=== PATIENT | female | born 1980 | race Caucasian/White ===

== ENCOUNTER 2019-12-12 07:34 | Outpatient (CLI) | payer OTHER ==
[2019-12-12 16:52] LABS: Hemoglobin 13.1 g/dL (12.0-16.0); Mean Corpuscular Hemoglobin 32.6 pg (27.0-31.0); Mean Corpuscular Volume 98.5 fL (78.0-98.0); Mean Platelet Volume 7.4 fL (7.4-10.4); Platelet Count 303 thou/uL (130-400); RBC Distribution Width 12.6 % (11.5-14.5); Red Blood Cell (RBC) Count 4.02 mill/uL (4.20-5.40); White Blood Cell (WBC) Count 7.9 thou/uL (4.8-10.8)
[2019-12-12 17:08] LABS: Anion Gap 9 mmol/L (10-20); BUN (Urea Nitrogen) 5 mg/dL (7.0-18.7); Calc. Creatinine Clearance 0 mL/min (70-130); Carbon Dioxide 28 mmol/L (22-29); Chloride 103 mmol/L (98-107); Estimated GFR-MDRD 85; Glucose 80 mg/dL (70-105); Potassium 3.7 mmol/L (3.5-5.1); Sodium 136 mmol/L (136-145)
[2019-12-13 18:17] LABS: SARS-CoV-2 MS2 Positive; SARS-CoV-2 N Gene Negative; SARS-CoV-2 S Gene Negative; SARS-CoV-2 orf1ab Negative
== END 2019-12-12 07:35 | disposition home or self-care (01) ==
LOC: LABBT 07:34
PROVIDERS: ATTEND Neurological Surgery
DX: Z01.818 Encounter for other preprocedural examination (principal); Z11.59 Encounter for screening for other viral diseases; M54.16 Radiculopathy, lumbar region
CPT/HCPCS: 80048; 85027; 87635; 93005; 93010; U0003

== ENCOUNTER 2019-12-17 07:21 | Day surgery (SDC) | payer OTHER ==
[2019-12-12 16:16] VITALS: BMI 31.6
[2019-12-17] MEDS ORDERED: Midazolam HCl 2 mg/2 ml Vial ONE (09:57)
[2019-12-17] MEDS ORDERED: Fentanyl 100 MCG/2 ML VIAL ONE ×3 (09:57→11:41)
[2019-12-17] MEDS ORDERED: Ketorolac Tromethamine 30 MG/ML VIAL ONE ×2 (11:19→12:57)
[2019-12-17] MEDS ORDERED: Morphine 4 MG/ML VIAL ONE (11:23)
[2019-12-17] MEDS ORDERED: Morphine 2 MG/ML SYRINGE ONE (11:40)
--- NOTE | 2019-12-17 12:12 | OP ---
DATE OF PROCEDURE: 12/17/2019 CLINICAL LAB SCIENTIST: Lilian Kovacs PA-C PROCEDURE PERFORMED: Left L5-S1 microdiskectomy. DESCRIPTION OF PROCEDURE: The patient was brought to the operating room and intubated. She was rolled in a prone position on gel-filled chest rolls. An incision was made exposing L5 and S1 on the left and the level was confirmed by x-ray. We performed left L5-S1 hemilaminectomy, removed via ligament, identified the left S1 nerve root and beneath this, removed a large extruded disk herniation. A complete decompression of left S1 was achieved. The wound was extensively irrigated and MAC hemostasis was secured. Vancomycin powder was applied and the wound was closed in anatomic layers. Job ID: [id number]
[2019-12-17] MEDS ORDERED: Lidocaine 1% PF 5 ML VIAL ONE (12:57)
[2019-12-17] MEDS ORDERED: Ondansetron PF 4 MG/2 ML Vial ONE (12:57)
[2019-12-17] MEDS ORDERED: Dexamethasone 20 MG/5 ML VIAL ONE (12:57)
[2019-12-17] MEDS ORDERED: PROPOFOL 200 MG/20 ML VIAL ONE (12:57)
[2019-12-17] MEDS ORDERED: Rocuronium Bromide 10 MG/ML (10ML VIAL) ONE (12:57)
[2019-12-17] MEDS ORDERED: Glycopyrrolate 0.2 MG/ML 5 ML SYRINGE ONE (12:57)
== END 2019-12-17 13:40 | disposition home or self-care (01) ==
LOC: SDC 07:21
PROVIDERS: ATTEND Neurological Surgery
PROC: 0SB40ZZ Excision of Lumbosacral Disc, Open Approach (ICD-10-PCS; principal; 2019-12-17)
DX: M51.27 Other intervertebral disc displacement, lumbosacral region (principal); M54.16 Radiculopathy, lumbar region; E89.0 Postprocedural hypothyroidism; F17.200 Nicotine dependence, unspecified, uncomplicated; Z79.899 Other long term (current) drug therapy; Z88.2 Allergy status to sulfonamides; Z91.040 Latex allergy status
CPT/HCPCS: 76000; J0690; J1100; J1885; J2001; J2250; J2270; J2405; J2704; J3010; J3370

== ENCOUNTER 2020-11-03 06:55 | Day surgery (SDC) | payer OTHER ==
[2020-10-31 09:47] VITALS: BMI 32.4
[2020-11-03] MEDS ORDERED: Fentanyl 100 MCG/2 ML VIAL ONE ×3 (07:23→09:19)
[2020-11-03] MEDS ORDERED: Lidocaine 2% Jelly 5 ML TUBE ONE (07:23)
[2020-11-03] MEDS ORDERED: Rocuronium Bromide 10 MG/ML (10ML VIAL) ONE (07:34)
[2020-11-03] MEDS ORDERED: Lidocaine 1% PF 5 ML VIAL ONE (07:34)
[2020-11-03] MEDS ORDERED: Dexamethasone 20 MG/5 ML VIAL ONE (07:34)
[2020-11-03] MEDS ORDERED: Ondansetron PF 4 MG/2 ML Vial ONE (07:34)
[2020-11-03] MEDS ORDERED: PROPOFOL 200 MG/20 ML VIAL ONE (07:34)
[2020-11-03] MEDS ORDERED: Glycopyrrolate 0.2 MG/ML 5 ML SYRINGE ONE (07:34)
[2020-11-03] MEDS ORDERED: Ketorolac Tromethamine 30 MG/ML VIAL ONE (09:03)
[2020-11-03] MEDS ORDERED: tiZANidine HCl 4 MG TAB ONE (10:20)
[2020-11-03] MEDS ORDERED: HYDROcodone/Acetaminophen 5/325 mg Tablet ONE (10:20)
== END 2020-11-03 11:11 | disposition home or self-care (01) ==
LOC: SDC 06:55
PROVIDERS: ATTEND Neurological Surgery
DX: M54.16 Radiculopathy, lumbar region (principal); Z88.2 Allergy status to sulfonamides; Z88.5 Allergy status to narcotic agent; Z91.040 Latex allergy status
CPT/HCPCS: 76000; C1713; C1768; J0690; J1100; J1885; J2405; J2704; J3010; J3370; J3490